=== PATIENT | female | born 1990 | race African-American/Black ===

== ENCOUNTER 2019-08-07 17:31 | Emergency (ER) | payer SELFPAY ==
[~2019-08-07] VITALS: Ht 162.6 cm; Wt 49.9 kg
--- NOTE | 2019-08-07 18:01 | NUR ---
ED Nurse Note:pt. already urinated -no urine at this time able to provide
[2019-08-07 18:02] VITALS: BP 95/60
--- NOTE | 2019-08-07 18:51 | NUR ---
ED Nurse Note:urine sent to labs
--- NOTE | 2019-08-07 19:05 | Emergency Room Report ---
History of Present Illness General Chief Complaint: Upper Respiratory Illness Source: Patient Present Illness HPI 29 Yo female presents to the ED c/o 2 concerns. The first is nausea, 4/[address], fatigue and decreased appetite x 4 days. She denies nasal congestion, rhinorrhea, ear pain, neck pain/stiffness, MENDOZA, vomiting or diarrhea. The second is a palpable non painful bulge in her stomach x 1 year. She denies constipation or strenuous activities. She reports she is very active. She is concerned regarding the first set of symptoms as she thinks that she may have been given greenlandic fries that were contaminated with G & C on purpose by a stranger. Pt. has very vague details and doesn't provide much more specifics. Se denies fevers or chills. She denies psychiatric hx. She doesn't receive flu vaccinations. Pt. reports hx of asthma. She denies suspicion of . Pt. is overly concerned for being poisoned with G & C. Allergies: Coded Allergies: No Known Allergies (Unverified , 08/07/19) Patient History Past Medical History: see triage record Past Surgical History: none Pertinent Family History: none Now: No Reviewed Nursing Documentation: PMH: Agreed; PSxH: Agreed Nursing Documentation-PMH Past Medical History: No History, Except For Hx Cardiac Problems: No Hx Hypertension: No Hx Pacemaker: No Hx Asthma: Yes Hx COPD: No Hx Diabetes: No Hx Cancer: No Hx Gastrointestinal Problems: No Hx Dialysis: No History Of Psychiatric Problem: No Hx Neurological Problems: No Hx Cerebrovascular Accident: No Hx Seizures: No Review of Systems All Other Systems: negative except mentioned in HPI Physical Exam Vital Signs Date Time Temp Pulse Resp B/P (MAP) Pulse Ox O2 Delivery O2 Flow Rate FiO2 08/07/19 17:50 97.9 66 16 95/60 (72) 98 Room Air Sp02 EP Interpretation: reviewed, normal General Appearance: no apparent distress, alert, GCS 15, non-toxic, thin Head: normocephalic, atraumatic Eyes: bilateral eye normal inspection, bilateral eye PERRL ENT: hearing grossly normal, normal pharynx, normal voice, TMs + canals normal , uvula midline, moist mucus membranes Neck: full range of motion, no meningismus, no bony tend Respiratory: chest non-tender, lungs clear, normal breath sounds, no respiratory distress, no accessory muscle use, no wheezing, speaking full sentences Cardiovascular #1: regular rate, rhythm Gastrointestinal: normal bowel sounds - hyperactive in all 4 quadrants, non tender, soft, hernia - umbillical which is easily reducible Genitourinary: normal inspection, no CVA tenderness Musculoskeletal: normal range of motion, gait/station normal, non-tender Neurologic: alert, motor strength/tone normal, oriented x3, sensory intact, responsive, speech normal Psychiatric: judgement/insight normal Skin: no rash, normal color Lymphatic: no adenopathy Medical Decision Making PA Attestation Dr. Ayers is my supervising Physician whom patient management has been discussed with. Diagnostic Impression: Primary Impression: Upper respiratory symptom Additional Impression: Hernia ER Course 29 Yo female presents to the ED c/o 2 concerns. The first is nausea, 4/[address], fatigue and decreased appetite x 4 days. She denies nasal congestion, rhinorrhea, ear pain, neck pain/stiffness, MENDOZA, vomiting or diarrhea. The second is a palpable non painful bulge in her stomach x 1 year. She denies constipation or strenuous activities. She reports she is very active. She is concerned regarding the first set of symptoms as she thinks that she may have been given greenlandic fries that were contaminated with G & C on purpose by a stranger. Pt. has very vague details and doesn't provide much more specifics. Se denies fevers or chills. She denies psychiatric hx. She doesn't receive flu vaccinations. Pt. reports hx of asthma. She denies suspicion of . Pt. is overly concerned for being poisoned with G & C. Ddx considered but are not limited to GE, colitis, acute appy, SBO, , Hernia, strangulated or incarcerated hernia, delusions, psychiatric component just to name a few. Vital signs: pt. is afebrile, H&PE are most consistent with mild URI symptoms most likely viral in nature, no evidence to suggest acute abdomen on physical exam. small umbilical hernia is reducible easily with gentle pressure it returns when the pt. strains. NO evidence to suggest incarceration/strangulation/gangrene at this time. underlying psychiatric illness suspected. Pt. does not demonstrate a threat to herself or others. ORDERS: -Urine Hcg: Negative ED INTERVENTIONS: -Rocephin 250 IU IM -Mylanta PO -I do not identify an emergent condition at this time. With current presentation , pt. is stable for close outpatient follow up and conservative treatment. D/ w pt. to return promptly to ED with worsening or new symptoms.- Pt. verbalizes' understanding and agreement with proposed treatment plan. DISCHARGE: At this time pt. is stable for d/c to home. Will provide printed patient care instructions, and any necessary prescriptions. Care plan and follow up instructions have been discussed with the patient prior to discharge. Labs Test 08/07/19 18:40 Urine HCG, Qualitative Negative (NEGATIVE) Last Vital Signs Date Time Temp Pulse Resp B/P (MAP) Pulse Ox O2 Delivery O2 Flow Rate FiO2 08/07/19 18:02 66 16 Room Air 08/07/19 18:02 97.9 95/60 98 Disposition: HOME, SELF-CARE Condition: Stable Scripts Doxycycline Hyclate* (VIBRAMYCIN*) 100 Mg Capsule 100 MG ORAL EVERY 12 HOURS for 7 Days, #14 CAP 0 Refills Prov: Lashell Barboza 08/07/19 Docusate Sodium* (COLACE*) 100 Mg Capsule 100 MG ORAL DAILY, #30 CAP Prov: Lashell Barboza 08/07/19 Albuterol Sulfate* (ALBUTEROL SULFATE MDI*) 8.5 Gm Hfa.aer.ad 2 PUFF INH Q4H, #1 INH 0 Refills Prov: Lashell Barboza 08/07/19 Referrals: [facility] Patient Instructions: Hernia, Adult, [id number], Upper Respiratory Infection , Adult Additional Instructions: Take medications as directed. Follow up with a Primary Care Provider in 3-5 days, even if your symptoms have resolved. --Please review list of primary care clinics, if you do not already have a primary care provider Return sooner to ED if new symptoms occur, or current symptoms become worse. - Please note that this Emergency Department Report was dictated using [employer] coordinator technology software, occasionally this can lead to erroneous entry secondary to interpretation by the dictation equipment. Lashell Barboza Aug 07, 2019 19:05
[2019-08-07] MEDS ORDERED: COLACE100 MG ORAL (19:09)
[2019-08-07] MEDS ORDERED: ALBUTEROL SULF8.5 GM INH (19:09)
[2019-08-07] MEDS ORDERED: VIBRAMYCIN100 MG ORAL (19:13)
[2019-08-07] MEDS ORDERED: Mylanta II UD 30ml ORAL ONE (19:15)
[2019-08-07] MEDS ORDERED: Lidocaine 1% MPF 10mg/ml 5ml INJ ONE (19:15)
--- NOTE | 2019-08-07 19:27 | NUR ---
ER DISCHARGE NOTE: Patient is cleared to be discharged per ERMD, pt is aox4, on room air, with stable vital signs. pt was given dc and prescription instructions, pt was able to verbalize understanding, pt id band removed without complications. pt is able to ambulate with steady gait. pt took all belongings.
[2019-08-07 19:28] VITALS: BP 105/60
== END 2019-08-07 19:28 | disposition home or self-care (01) ==
LOC: EMR 19:05
DX: J06.9 Acute upper respiratory infection, unspecified (principal); K42.9 Umbilical hernia without obstruction or gangrene; J45.909 Unspecified asthma, uncomplicated
CPT/HCPCS: 81025; 96372; 99283; J0696

== ENCOUNTER 2019-08-13 09:39 | Emergency (ER) | payer SELFPAY ==
[~2019-08-13] VITALS: Ht 162.6 cm; Wt 54.4 kg
[~2019-08-13 09:39] MED LIST: ALBUTEROL SULF8.5 GM INH; COLACE100 MG ORAL; VIBRAMYCIN100 MG ORAL
[2019-08-13 09:46] VITALS: BP 100/66
--- NOTE | 2019-08-13 10:04 | NUR ---
ED Nurse Note: pt. aaox4. ambulatory. walked in to er. per pt. she is here due to abdominal pain after "eating [place]" nausea x1; reports no diarrhea. no s/s of acute distress noted
[2019-08-13 10:29] LABS: APPEARANCE,URINE CLEAR; BILIRUBIN, URINE NEGATIVE (NEGATIVE); COLOR,URINE PALE YELLOW; GLUCOSE, URINE (UA) NEGATIVE (NEGATIVE); KETONES,URINE NEGATIVE (NEGATIVE); LEUKOCYTE ESTERASE ,URINE NEGATIVE (NEGATIVE); NITRITE,URINE NEGATIVE (NEGATIVE); PH,URINE 7 (4.5-8.0); PROTEIN,URINE NEGATIVE (NEGATIVE); UROBILINOGEN,URINE NORMAL MG/DL (0.0-1.0)
--- NOTE | 2019-08-13 10:29 | Emergency Room Report ---
History of Present Illness General Chief Complaint: Abdominal Pain Source: Patient Present Illness HPI 29-year-old female presents after increased generalized abdominal discomfort. As she reports having onset of symptoms after eating some [employer]. She had some prior history of asthma. Denies any fever or vomiting. Reports having increased pain briefly after eating some food there. She had recent prior visit for which she states she ate some possibly contaminated fries and had been given prescriptions for medications but had been able to fill this. Allergies: Coded Allergies: No Known Allergies (Unverified , 08/07/19) Patient History Past Medical History: see triage record Past Surgical History: none Last Menstrual Period: 07/20 Reviewed Nursing Documentation: PMH: Agreed; PSxH: Agreed Nursing Documentation-PMH Past Medical History: No History, Except For Hx Cardiac Problems: No Hx Hypertension: No Hx Pacemaker: No Hx Asthma: Yes Hx COPD: No Hx Diabetes: No Hx Cancer: No Hx Gastrointestinal Problems: No Hx Dialysis: No Hx Neurological Problems: No Hx Cerebrovascular Accident: No Hx Seizures: No Review of Systems All Other Systems: negative except mentioned in HPI Physical Exam Vital Signs Date Time Temp Pulse Resp B/P (MAP) Pulse Ox O2 Delivery O2 Flow Rate FiO2 08/13/19 09:46 97.9 78 16 100/66 96 Room Air General Appearance: well appearing, no apparent distress, alert, GCS 15 Head: normocephalic, atraumatic ENT: hearing grossly normal, normal voice Neck: full range of motion, supple Respiratory: no respiratory distress, speaking full sentences Cardiovascular #1: normal inspection, normal peripheral pulses, regular rate, rhythm Gastrointestinal: normal inspection, non tender, soft Musculoskeletal: normal inspection, no calf tenderness Neurologic: alert, motor strength/tone normal, oncology research rn III-XII nml as tested, normal gait Psychiatric: mood/affect normal Skin: no rash Medical Decision Making Diagnostic Impression: Primary Impression: Pain, abdominal, nonspecific ER Course Patient presented for abdominal pain. Differential diagnosis include was not limited to gastritis, gastroenteritis, , urinary tract infection among others. Patient has a benign exam and does not appear to require any imaging or laboratory testing at this time.- patient requested prescriptions that she had previously been prescribed which she had lost. Patient will be discharged home. The patient is advised to follow up with primary care doctor in 1-2 days. Patient is advised to return if any worsening condition or if any changes in status that are concerning. This report is dictated with [employer] environmental field professional software which may occasionally lead to discrepancies related to use of this software. Labs Test 08/13/19 10:10 Urine Color Pale yellow Urine Appearance Clear Urine pH 7 (4.5-8.0) Urine Specific [place] 1.005 (1.005-1.035) Urine Protein Negative (NEGATIVE) Urine Glucose (UA) Negative (NEGATIVE) Urine Ketones Negative (NEGATIVE) Urine Blood 3+ (NEGATIVE) Urine Nitrite Negative (NEGATIVE) Urine Bilirubin Negative (NEGATIVE) Urine Urobilinogen Normal MG/DL (0.0-1.0) Urine Leukocyte Esterase Negative (NEGATIVE) Urine RBC 5-10 /HPF (0 - 2) Urine WBC 0-2 /HPF (0 - 2) Urine Squamous Epithelial Cells Many /LPF (NONE/OCC) Urine Bacteria Few /HPF (NONE) Urine HCG, Qualitative Negative (NEGATIVE) Last Vital Signs Date Time Temp Pulse Resp B/P (MAP) Pulse Ox O2 Delivery O2 Flow Rate FiO2 08/13/19 09:51 78 16 Room Air 08/13/19 09:46 97.9 100/66 (77) 96 Status: improved Disposition: HOME, SELF-CARE Condition: Stable - Will be given Scripts Omeprazole (OMEPRAZOLE) 20 Mg Capsule.dr 20 MG ORAL DAILY, #30 CAP Prov: David Murray MD 08/13/19 Doxycycline Hyclate* (VIBRAMYCIN*) 100 Mg Capsule 100 MG ORAL EVERY 12 HOURS for 7 Days, #14 CAP 0 Refills Prov: David Murray MD 08/13/19 David Murray MD Aug 13, 2019 10:29
[2019-08-13] MEDS ORDERED: VIBRAMYCIN100 MG ORAL (11:17)
[2019-08-13] MEDS ORDERED: OMEPRAZOLE20 M2 ORAL (11:17)
[2019-08-13 11:40] VITALS: BP 105/62
== END 2019-08-13 11:40 | disposition home or self-care (01) ==
LOC: EMR 10:30
DX: R10.84 Generalized abdominal pain (principal)
CPT/HCPCS: 81003; 81025; 99283